=== PATIENT | female | born 1980 | race Caucasian/White ===

== ENCOUNTER 2020-08-06 15:05 | Emergency (ER) | payer SELFPAY ==
[~2020-08-06] VITALS: Ht 165.1 cm; Wt 57.0 kg
[2020-08-06 15:08] VITALS: BP 123/70
[2020-08-06] MEDS ORDERED: LORazepam 1 MG TABLET PO ONE (15:45)
[2020-08-06] MEDS ORDERED: CITA20TA9 PO (15:55)
--- NOTE | 2020-08-06 15:55 | PHYS DOC ---
Past History Past Medical History: Anxiety, Depression Past Surgical History: No Surgical History Alcohol Use: None Adult General Chief Complaint Chief Complaint: ANXIETY/PANIC ATTACK HPI HPI Patient is a 40-year-old female presents emergency department complaining of anxiety and requesting her anxiety medication Celexa be refilled. Patient states that she has been out of Celexa for several months related to loss of job if she could not afford it. Patient states she has a job now and can afford to fill her medications. Patient states she used to live in [place] and see a psychiatrist in [place] that would prescribe her medication, patient states that she lives in [place] and has a appointment at the [facility] for evalu ation and medication consideration on 08/21/2020. Patient denies homicidal suicidal ideations. Patient denies chest pain, shortness of breath, visual changes, neurological problems, cough or congestion. Patient denies any other physical complaints or physical concerns. Review of Systems Review of Systems 14 body systems of review of systems have been reviewed. See HPI for pertinent positives and negative responses, otherwise all other systems are negative, nonpertinent or noncontributory. Current Medications Current Medications Current Medications Medications (Trade) Dose Ordered Sig/Tuyet Start Time Stop Time Status Last Admin Dose Admin Lorazepam (Ativan) 1 mg 1X ONCE 08/06/20 15:45 08/06/20 15:46 UNV Physical Exam Physical Exam Constitutional: Well developed, well nourished, no acute distress, non-toxic appearance. HENT: Normocephalic, atraumatic, bilateral external ears normal, oropharynx moist, no oral exudates, nose normal. Eyes: PERRLA, EOMI, conjunctiva normal, no discharge. Neck: Normal range of motion, no tenderness, supple, no stridor. Cardiovascular:Heart rate regular rhythm, no murmur, heart sounds S1-S2 auscultation. Lungs & Thorax: Bilateral breath sounds clear to auscultation all lung combs. Abdomen: Bowel sounds normal, soft, no tenderness, no masses, no pulsatile masses. Skin: Warm, dry, no erythema, no rash. Back: No tenderness, no CVA tenderness. Extremities: No tenderness, no cyanosis, no clubbing, ROM intact, no edema. Neurologic: Alert and oriented X 3, normal motor function, normal sensory function, no focal deficits noted. Psychologic: Affect normal, judgement normal, mood normal. Current Patient Data Vital Signs Vital Signs Date Time Temp Pulse Resp B/P (MAP) Pulse Ox O2 Delivery O2 Flow Rate FiO2 08/06/20 15:08 98.5 76 20 123/70 (87) 98 Room Air EKG EKG [] Radiology/Procedures Radiology/Procedures [] Heart Score Risk Factors: Risk Factors: DM, Current or recent (<one month) smoker, HTN, HLP, family history of CAD, obesity. Risk Scores: Risk Factors: DM, Current or recent (<one month) smoker, HTN, HLP, family hist ory of CAD, obesity. Course & Med Decision Making Course & Med Decision Making Pertinent Labs and Imaging studies reviewed. (See chart for details) 40-year-old female, vital signs reviewed, presents emergency department for refill of her Celexa. Patient has appointment to see local psychiatry at [facility] in 2 weeks. We will give 30-day supply of 20 mg Celexa p.o. daily, will give 1 mg p.o. Ativan in emergency department. Patient gave verbal understanding of discharge home instructions, will keep appointment with [facility] for future prescriptions for her psychiatric medications, gave verbal understanding return to ER precautions or concerns, was discharged home without incident. Dragon Disclaimer Dragon Disclaimer This electronic medical record was generated, in whole or in part, using a voice recognition dictation system. Departure Departure: Impression: Primary Impression: Anxiety Additional Impression: Encounter for medication refill Disposition: 01 DC HOME SELF CARE/HOMELESS Condition: GOOD Referrals: PCP,UNKNOWN (PCP) Additional Instructions: Take medications as prescribed, please keep your appointment with the [facility] for ongoing prescription refill of your Celexa. Return to the emergency department for worsening symptoms or other concerns. EMERGENCY DEPARTMENT GENERAL DISCHARGE INSTRUCTIONS Thank you for coming to [facility] (ED) today and trusting us with you care. We trust that you had a positivie experience in our Emergency Department. If you wish to speak to the department management, you may call the director at [phone]. YOUR FOLLOW UP INSTRUCTIONS ARE FOLLOWS: 1. Do you have a private Doctor? If you do not have a private doctor, please ask for a resource list of physicians or clinics that may be able to assist you with follow up care. 2. The Emergency Physician has interpreted your x-rays. The X-Ray specialist will also review them. If there is a change in the findings, you will be notified in 48 hours when at all possible. 3. A lab test or culture has been done, your results will be reviewed and you will be notified if you need a change in treatment. ADDITIONAL INSTRUCTIONS AND INFORMATION: 1. Your care today has been supervised by a physician who is specially trained in emergency care. Many problems require more than one evaluation for a complete diagnosis and treatment. We recommend that you schedule your follow up appointment as recommended to ensure complete treatment of you illness or injury. If you are unable to obtain follow up care and continue to have a problem, or if your condition worsens, we recommend that you return to the ED. 2. We are not able to safely determine your condition over the phone nor are we able to give sound medical advice over the phone. For these safety reasons, if you call for medical advice we will ask you to come to the ED for further evaluation. 3. If you have any questions regarding these discharge instructions please call the ED at [phone]. SAFETY INFORMATION: In the interest of safety, wellness, and injury prevention; we encourage you to wear your sealbelt, if you smoke; quite smoking, and we encourage family to use a protective helmet for bicycling and other sporting events that present an increased risk for head injury. IF YOUR SYMPTOMS WORSEN OR NEW SYMPTOMS DEVELOP, OR YOU HAVE CONCERNS ABOUT YOUR CONDITION; OR IF YOUR CONDITION WORSENS WHILE YOU ARE WAITING FOR YOUR FOLLOW UP APPOINTMENT; EITHER CONTACT YOUR PRIMARY CARE DOCTOR, THE PHYSICIAN WHOSE NAME AND NUMBER YOU WERE GIVEN, OR RETURN TO THE ED IMMEDIATELY. Scripts Citalopram Hydrobromide (CELEXA) 20 Mg Tablet 1 TAB PO DAILY for ANXIETY, #30 TAB 0 Refills Prov: BRANDI VALENCIA APRN 08/06/20 Problem Qualifiers BRANDI VALENCIA APRN Aug 06, 2020 15:55
== END 2020-08-06 16:14 | disposition home or self-care (01) ==
LOC: ER 15:05
DX: F41.9 Anxiety disorder, unspecified (principal); Z76.0 Encounter for issue of repeat prescription; F32.9 Major depressive disorder, single episode, unspecified
CPT/HCPCS: 99283

== ENCOUNTER 2020-08-13 17:53 | Emergency (ER) | payer SELFPAY ==
[~2020-08-13] VITALS: Ht 165.1 cm; Wt 66.0 kg
[~2020-08-13 17:53] MED LIST: CITA20TA9 PO
[2020-08-13] MEDS ORDERED: CITALOPRAM 20 MG TABLET. PO ONE (18:30)
--- NOTE | 2020-08-13 18:46 | PHYS DOC ---
Past History Past Medical History: Anxiety, Depression Past Surgical History: No Surgical History Alcohol Use: None General Adult EDM: Chief Complaint: ANXIETY/PANIC ATTACK HPI: HPI: "I was here the other day for depression anxiety.... Back on the .... They did give me a prescription for Celexa.... I have used it before when I get depression and anxiety.... However I have not filled it because of financial issues.... I do plan to fill it here this coming Friday when I get paid.... It just been having more anxiety today... I know that is what is going on ..I would like to get treatment for my anxiety here in the ER... or at least one tablet...of Celexa.." Patient is a 40 year old female who presents with with complaints of anxiety. Patient recently ran out of her Celexa. Was seen on 221 and did receive a 30- day supply prescription for Celexa. Patient has not filled this prescription as yet. Patient has been following [facility]. Does have a follow-up appointment on 08/21/2020. Patient denies any suicidal ideations. Patient denies any chest pain, dyspnea, hallucinations, delusions, fever, chills, pain. Patient states at times when she has anxiety attacks she seems like her heart races. Currently she is in sinus rhythm on monitor. At a rate of approximately 65-70. No acute morphology noted on monitor. Patient requesting a dose of Celexa until she can follow-up tomorrow at the counseling center and see if her appointment could be moved up. Patient denies any illicit drugs. No history of recent travel but has moved from [place] to the [facility]. Review of Systems: Review of Systems: Constitutional: Denies fever or chills Eyes: Denies change in visual acuity HENT: Denies nasal congestion or sore throat Respiratory: Denies cough or shortness of breath Cardiovascular: Denies chest pain or edema GI: Denies abdominal pain, nausea, vomiting, bloody stools or diarrhea : Denies dysuria Musculoskeletal: Denies back pain or joint pain Integument: Denies rash Neurologic: Denies headache, focal weakness or sensory changes Endocrine: Denies polyuria or polydipsia Lymphatic: Denies swollen glands Psychiatric: History of depression and anxiety. Denies any suicidal ideation. Denies any homicidal ideation. Denies any hallucinations or delusions. Family History: Family History: Noncontributory to presentation Current Medications: Current Meds: Current Medications Medications (Trade) Dose Ordered Sig/Tuyet Start Time Stop Time Status Last Admin Dose Admin Citalopram Hydrobromide (CeleXA) 20 mg 1X ONCE 08/13/20 18:30 08/13/20 18:32 DC Allergies: Allergies: Allergies Coded Allergies Type Severity Reaction Last Updated Verified No Known Drug Allergies 08/06/20 No Physical Exam: PE: Constitutional: no acute distress, non-toxic appearance. [] HENT: Normocephalic, atraumatic, bilateral external ears normal, oropharynx moist, no oral exudates, nose normal. [] Eyes: PERRLA, EOMI, conjunctiva normal, no discharge. Strabismus . Neck: Normal range of motion, no tenderness, supple, no stridor. [] Cardiovascular:Heart rate regular rhythm, no murmur [] Lungs & Thorax: Bilateral breath sounds equal apex on auscultation [] Abdomen: Bowel sounds normal, soft, no tenderness, no masses, no pulsatile masses. [] Skin: Warm, dry, no erythema, no rash. [] Back: No tenderness, no CVA tenderness. [] Extremities: No tenderness, no cyanosis, no clubbing, ROM intact, no edema. [] Neurologic: Alert and oriented X 3, moves all extremities on request, does have distal sensory,, no focal deficits noted. [] DTRs +2 brachial and patella. Is ambulatory without problems. No drift. 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 Psychologic: Affect anxious , judgement normal, mood reports depression but no suicidal ideations or homicidal ideations. Denies hallucinations or delusions Current Patient Data: Labs: Laboratory Tests Test 08/13/20 18:33 POC Urine HCG, Qualitative hcg negative (Negative) Vital Signs: Vital Signs Date Time Temp Pulse Resp B/P (MAP) Pulse Ox O2 Delivery O2 Flow Rate FiO2 08/13/20 17:53 98.4 75 16 126/67 (86) 99 Room Air EKG: EKG: My interpretation EKG shows a sinus rhythm at 66 bpm. There is a mild right bundle branch block. But there is no findings acute STEMI or contralateral changes. [] Radiology/Procedures: Radiology/Procedures: Declined by patient [] Heart Score: HEART Score for Chest Pain: HEART Score for Chest Pain Response (Comments) Value History Slighlty/Non-Suspicious 0 ECG Normal 0 Age < 45 0 Risk Factors No Risk Factors 0 Total 0 Risk Factors: Risk Factors: DM, Current or recent (<one month) smoker, HTN, HLP, family history of CAD, obesity. Risk Scores: Score 0 - 3: 2.5% MACE over next 6 weeks - Discharge Home Score 4 - 6: 20.3% MACE over next 6 weeks - Admit for Clinical Observation Score 7 - 10: 72.7% MACE over next 6 weeks - Early Invasive Strategies Course & Med Decision Making: Course & Med Decision Making Pertinent Labs and Imaging studies reviewed. (See chart for details) Encourage patient to fill her prescription. Encourage patient to keep follow-up with counseling center. Patient return if any concerns. Impression: 1. Request for med refill 2. History of anxiety disorder 3. History depression [] Dragon Disclaimer: Dragon Disclaimer: This electronic medical record was generated, in whole or in part, using a voice recognition dictation system. Departure Departure: Referrals: PCP,NO (PCP) Dragon Disclaimer This chart was dictated in whole or in part using Voice Recognition software in a busy, high-work load, and often noisy Emergency Department environment. It may contain unintended and wholly unrecognized errors or omissions. Dragon Disclaimer This chart was dictated in whole or in part using Voice Recognition software in a busy, high-work load, and often noisy Emergency Department environment. It may contain unintended and wholly unrecognized errors or omissions. OTONIEL CASTELLON MD Aug 13, 2020 18:46
[2020-08-13 18:56] LABS: BILIRUBIN,URINE NEG (NEG); CLARITY,URINE CLEAR; COLOR,URINE YELLOW; GLUCOSE,URINE NEG (NEG); NITRITE,URINE NEG (NEG); RBC,URINE OCC /HPF (0-2); UROBILINOGEN,URINE 0.2 mg/dL (0.2 mg/dL)
[2020-08-13 18:57] LABS: BACTERIA,URINE FEW /HPF (0-FEW); BARBITURATES NEG (NEG); BENZODIAZEPINES NEG (NEG); CANNABINOIDS NEG (NEG); COCAINE NEG (NEG); METHADONE NEG (NEG); OPIATES NEG (NEG); PHENCYCLIDINE NEG (NEG); SQUAMOUS EPITHELIAL CELL,UR MOD /LPF; WBC,URINE OCC /HPF (0-4)
[2020-08-13 18:59] LABS: AMPHETAMINE/METHAMPHETAMINE NEG (NEG)
[2020-08-13 19:25] VITALS: BP 124/65
--- NOTE | 2020-08-14 03:53 | EKG ---
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
== END 2020-08-13 19:25 | disposition home or self-care (01) ==
LOC: ER 17:53
DX: F41.9 Anxiety disorder, unspecified (principal); Z76.0 Encounter for issue of repeat prescription; F32.9 Major depressive disorder, single episode, unspecified
CPT/HCPCS: 36415; 80307; 81001; 81025; 99284

== ENCOUNTER 2020-09-02 09:55 | Emergency (ER) | payer SELFPAY ==
[~2020-09-02] VITALS: Ht 165.1 cm; Wt 66.0 kg
--- NOTE | 2020-09-02 10:04 | PHYS DOC ---
Past History Past Medical History: Anxiety, Depression Past Surgical History: No Surgical History Alcohol Use: None Adult General HPI HPI Patient is a 40-year-old female presenting via POV for suicidal ideation. Patient reports she started feeling suicidal today with plan to commit suicide by pill overdose or using a steak knife. States she suffered a "tumultuous break-up "of a longtime partner 3 days ago and has been severely depressed ever since. Has history of suicidal attempts and subsequent inpatient psychiatric treatment in the past, both attempts were via overdose using pills in 2000 and 2015. Denies any illicit drug use, alcohol use or other concerning ingestions. Has no prescribed medications at home. She came here because she "wants relief ". Review of Systems Review of Systems Fourteen body systems of review of systems have been reviewed. See HPI for pertinent positives and negative responses, other logan all other systems are negative, non-pertinent or non-contributory Allergies Allergies Allergies Coded Allergies Type Severity Reaction Last Updated Verified No Known Drug Allergies 08/06/20 No Physical Exam Physical Exam Constitutional: Well developed, well nourished, no acute distress, non-toxic appearance. Tearful HENT: Normocephalic, atraumatic, bilateral external ears normal, oropharynx moist, no oral exudates, nose normal. Eyes: PERRLA, EOMI, conjunctiva normal, no discharge. Neck: Normal range of motion, no tenderness, supple, no stridor. Cardiovascular: Heart rate regular, sinus rhythm, no murmurs rubs or gallops Lungs & Thorax: Bilateral breath sounds clear to auscultation Abdomen: Bowel sounds normal, soft, no tenderness, no masses, no pulsatile masses. Nonsurgical abdomen, no peritoneal signs Skin: Warm, dry, no erythema, no rash. Back: No tenderness, no CVA tenderness. Extremities: No tenderness, no cyanosis, no clubbing, ROM intact, no edema. Neurologic: Alert and oriented X 3, grossly normal motor & sensory function, no focal deficits noted. Psychologic: Tearful affect, depressed mood, Current Patient Data Vital Signs Vital Signs Date Time Temp Pulse Resp B/P (MAP) Pulse Ox O2 Delivery O2 Flow Rate FiO2 09/02/20 11:12 97.9 82 18 130/86 (101) 96 Lab Results Laboratory Tests Test 09/02/20 10:18 09/02/20 10:29 White Blood Count 7.9 x10^3/uL Red Blood Count 4.31 x10^6/uL Hemoglobin 13.0 g/dL Hematocrit 39.0 % Mean Corpuscular Volume 91 fL Mean Corpuscular Hemoglobin 30 pg Mean Corpuscular Hemoglobin Concent 33 g/dL Red Cell Distribution Width 13.1 % Platelet Count 359 x10^3/uL Neutrophils (%) (Auto) 65 % Lymphocytes (%) (Auto) 18 % Monocytes (%) (Auto) 11 % Eosinophils (%) (Auto) 5 % Basophils (%) (Auto) 1 % Neutrophils # (Auto) 5.1 x10^3uL Lymphocytes # (Auto) 1.4 x10^3/uL Monocytes # (Auto) 0.9 x10^3/uL Eosinophils # (Auto) 0.4 x10^3/uL Basophils # (Auto) 0.1 x10^3/uL Sodium Level 140 mmol/L Potassium Level 3.3 mmol/L Chloride Level 105 mmol/L Carbon Dioxide Level 27 mmol/L Anion Gap 8 Blood Urea Nitrogen 8 mg/dL Creatinine 0.8 mg/dL Estimated GFR (Cockcroft-Gault) 79.9 Glucose Level 102 mg/dL Calcium Level 8.9 mg/dL Salicylates Level < 2.8 mg/dL Salicylate Last Dose Date Unknown Salicylate Last Dose Time Unknown Urine Opiates Screen Neg Urine Methadone Screen Neg Acetaminophen Level < 2 mcg/mL Acetaminophen Last Dose Date Unknown Acetaminophen Last Dose Time Unknown Urine Barbiturates Neg Urine Phencyclidine Screen Neg Urine Amphetamine/Methamphetamine Neg Urine Benzodiazepines Screen Neg Urine Cocaine Screen Neg Urine Cannabinoids Screen Neg Ethyl Alcohol Level < 10 mg/dL Urine Ethyl Alcohol Neg Bedside Urine HCG, Qualitative hcg negative EKG EKG EKG ordered and interpreted by myself at 1025 hrs. as sinus rhythm at 70 bpm, unremarkable intervals, no axis deviation, no acute ischemic findings, no STEMI Radiology/Procedures Radiology/Procedures [] Heart Score C/O Chest Pain: No Risk Factors: Risk Factors: DM, Current or recent (<one month) smoker, HTN, HLP, family history of CAD, obesity. Risk Scores: Risk Factors: DM, Current or recent (<one month) smoker, HTN, HLP, family history of CAD, obesity. Course & Med Decision Making Course & Med Decision Making Hemodynamically stable patient with history concerning for active SI. Physical exam nonconcerning. Comprehensive ER work-up nonconcerning for any infectious abnormalities PAT team consulted once patient was medically cleared while in ER and came to evaluate patient. They agree with ongoing active SI that patient remains at risk to self if discharged home. All in agreement for discharge to [facility] for continued care Patient updated on proposed plan of care that included discharge to [facility], she remained agreeable. All questions and concerns addressed prior to EMS transport to [facility] for continued mental health treatment [place]esta Disclaimer [place] Disclaimer This electronic medical record was generated, in whole or in part, using a voice recognition dictation system. Departure Departure: Impression: Primary Impression: Suicidal ideation Disposition: 66 DC/TRF TO PSYCH HOSP ([facility]) Admitting Physician: Other ([facility]) Condition: STABLE Referrals: PCP,NO (PCP) RYANN CONCEPCION DO Sep 02, 2020 10:04
[2020-09-02 10:52] LABS: BASO # 0.1 x10^3/uL (0.0-0.2); BASO % 1 % (0-3); EOS # 0.4 x10^3/uL (0.0-0.7); EOS % 5 % (0-3); LYMPH # 1.4 x10^3/uL (1.0-4.8); LYMPH % 18 % (24-48); MEAN CORPUSCULAR HEMOGLOBIN 30 pg (25-35); MEAN CORPUSCULAR HGB CONC 33 g/dL (31-37); MEAN CORPUSCULAR VOLUME 91 fL (79-100); MONO # 0.9 x10^3/uL (0.0-1.1); MONO % 11 % (0-9); NEUT # 5.1 x10^3uL (1.8-7.7); NEUT % 65 % (31-73); PLATELET COUNT 359 x10^3/uL (140-400); RED BLOOD COUNT 4.31 x10^6/uL (3.50-5.40); RED CELL DISTRIBUTION WIDTH 13.1 % (11.5-14.5); WHITE BLOOD COUNT 7.9 x10^3/uL (4.0-11.0)
[2020-09-02 10:54] LABS: BARBITURATES NEG (NEG); BENZODIAZEPINES NEG (NEG); CANNABINOIDS NEG (NEG); COCAINE NEG (NEG); METHADONE NEG (NEG); OPIATES NEG (NEG); PHENCYCLIDINE NEG (NEG)
[2020-09-02 10:55] LABS: AMPHETAMINE/METHAMPHETAMINE NEG (NEG)
[2020-09-02 11:00] LABS: CALCIUM 8.9 mg/dL (8.5-10.1); CREATININE 0.8 mg/dL (0.6-1.0); GFR 79.9; POTASSIUM 3.3 mmol/L (3.5-5.1)
[2020-09-02 11:06] LABS: ACETAMIN < 2 mcg/mL (10-30); SALIC < 2.8 mg/dL (2.8-20.0)
[2020-09-02 11:07] LABS: ETHANOL < 10 mg/dL (0-10)
[2020-09-02 11:12] VITALS: BP 130/86
--- NOTE | 2020-09-02 12:08 | EKG ---
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
== END 2020-09-02 16:35 ==
LOC: ER 09:55
DX: R45.851 Suicidal ideations (principal); F41.9 Anxiety disorder, unspecified; F32.9 Major depressive disorder, single episode, unspecified; Z91.5 Personal history of self-harm
CPT/HCPCS: 36415; 80048; 80307; 80329; 81025; 85025; 93005; 99285; G0480

== ENCOUNTER 2020-09-21 05:35 | Emergency (ER) | payer SELFPAY ==
[~2020-09-21] VITALS: Ht 165.1 cm; Wt 66.0 kg
[2020-09-21 05:35] VITALS: BP 107/67
--- NOTE | 2020-09-21 06:28 | PHYS DOC ---
Past History Past Medical History: Anxiety, Depression Past Surgical History: No Surgical History Alcohol Use: None Adult General Chief Complaint Chief Complaint: ANXIETY/PANIC ATTACK HPI HPI Patient is a 40yo female presenting for anxiety. This is a chronic problem. This is her 3rd visit in past 4 weeks. She denies SI/HI. Reports home stressors have been continuing to bother her. She has appointment 09/26 at [facility]. She has not taken any medications previously prescribed to her for anxiety. She is here because "it feels like my safe haven...I just don't know what to do" Review of Systems Review of Systems Fourteen body systems of review of systems have been reviewed. See HPI for pertinent positives and negative responses, other logan all other systems are negative, non-pertinent or non-contributory Allergies Allergies Allergies Coded Allergies Type Severity Reaction Last Updated Verified No Known Drug Allergies 08/06/20 No Physical Exam Physical Exam Constitutional: Well developed, well nourished, no acute distress, non-toxic appearance. HENT: Normocephalic, atraumatic, bilateral external ears normal, oropharynx moist, no oral exudates, nose normal. Eyes: PERRLA, EOMI, conjunctiva normal, no discharge. Left exotropia Neck: Normal range of motion, no tenderness, supple, no stridor. Cardiovascular: Heart rate regular per monitor Lungs & Thorax: No respiratory distress or accessory muscle use, bilateral chest rise Abdomen: Abdomen soft, non-tender, bowel sounds present in all quadrants, no guarding or rebound, nonacute abdomen. Skin: Warm, dry, no erythema, no rash. Back: No tenderness, no CVA tenderness. Extremities: No tenderness, no cyanosis, no clubbing, ROM intact, no edema. Neurologic: Alert and oriented X 3, grossly normal motor & sensory function, no focal deficits noted. Psychologic: Flat affect, depressed mood Current Patient Data Vital Signs Vital Signs Date Time Temp Pulse Resp B/P (MAP) Pulse Ox O2 Delivery O2 Flow Rate FiO2 09/21/20 05:35 98.1 77 18 107/67 (80) 100 Room Air EKG EKG [] Radiology/Procedures Radiology/Procedures [] Heart Score C/O Chest Pain: No Risk Factors: Risk Factors: DM, Current or recent (<one month) smoker, HTN, HLP, family history of CAD, obesity. Risk Scores: Risk Factors: DM, Current or recent (<one month) smoker, HTN, HLP, family history of CAD, obesity. Course & Med Decision Making Course & Med Decision Making Hemodynamically stable, HPI and PE non-concerning. No HI/SI. Here for chronic complaints. No indication for further work-up nor intervention in ER setting Discussed need for patient to establish with [facility], educated her on crisis hours and need to establish care for continuity of care for her chronic complaints. She will benefit from therapy and likely medication Patient amenable to ER departure and returning home until she can be seen at [facility] in upcoming 3 hours. She feels safe at home physically, she has a safety plan in place that was already previously established Strict return precautions discussed with good understanding, all questions and concerns addressed prior to ER departure Modesta Disclaimer [place]esta Disclaimer This electronic medical record was generated, in whole or in part, using a voice recognition dictation system. Departure Departure: Impression: Primary Impression: Anxiety Disposition: 01 DC HOME SELF CARE/HOMELESS Condition: STABLE Referrals: PCP,NO (PCP) Patient Instructions: Anxiety and Panic Attacks Additional Instructions: As discussed prior to ER departure, please [facility] this [facility] at 0900am. They accept walk-ins. As discussed, this would be best for you to have a formal evaluation, develop relationships and establish care for continuity of care. If any concerning signs or symptoms present prior to outpatient follow-up please don't hesitate to come back for repeat evaluation. RYANN CONCEPCION DO Sep 21, 2020 06:28
== END 2020-09-21 06:38 | disposition home or self-care (01) ==
LOC: ER 05:35
DX: F41.9 Anxiety disorder, unspecified (principal); F32.9 Major depressive disorder, single episode, unspecified
CPT/HCPCS: 99281